=== PATIENT | male | born 1990 | race Two or more races ===

== ENCOUNTER 2018-07-23 13:12 | Emergency (ER) | payer MEDICAID ==
[~2018-07-23] VITALS: Ht 175.3 cm; Wt 87.4 kg
[2018-07-23] MEDS ORDERED: ALBU18HF INH (13:31)
[2018-07-23] MEDS ORDERED: DIPHENHYDRAMINE 50 MG/ML, 1ML ONE (13:50)
[2018-07-23] MEDS ORDERED: METOCLOPRAMIDE 5 MG/ML, 2ML ONE (13:50)
[2018-07-23] MEDS ORDERED: METOCLOPRAMIDE 5 MG/ML, 2ML IVPush ONE (14:00)
[2018-07-23] MEDS ORDERED: DIPHENHYDRAMINE 50 MG/ML, 1ML IVPush ONE (14:00)
[2018-07-23 14:18] VITALS: BP 125/53
== END 2018-07-23 15:09 | disposition home or self-care (01) ==
LOC: ED 15:03
DX: G44.311 Acute post-traumatic headache, intractable (principal)
CPT/HCPCS: 70450; 96374; 96375; 99284; J1200; J2765